=== PATIENT | female | born 1990 | race Caucasian/White ===

== ENCOUNTER 2021-02-27 22:46 | Emergency (ER) | payer MEDICAID ==
[2021-02-27 23:02] VITALS: BP 110/69; PULSE 68
[2021-02-27] MEDS ORDERED: Sodium Chloride 0.9% 10 ML Syringe FLUSH PRN (23:28)
--- NOTE | 2021-02-28 07:07 | PCM.EKG ---
#1 Interpretation EKG Date: 02/27/21 Time: 23:12 Rhythm: Other (Sinus bradycardia) Rate (Beats/Min): 59 P-Wave: Absent (1st degree AVB) QRS: Other (Distant with dextrocardia) ST-T: Normal QT: Normal Comparison: NA - No Prior EKG
== END 2021-02-28 01:30 | disposition left against medical advice (07) ==
LOC: JD.ED 22:46
DX: Z53.21 Procedure and treatment not carried out due to patient leaving prior to being seen by health care provider (principal)
CPT/HCPCS: 93005